=== PATIENT | male | born 1980 | race Caucasian/White ===

== ENCOUNTER 2017-06-09 16:14 | Emergency (ER) | payer OTHER ==
[~2017-06-09] VITALS: Ht 193 cm; Wt 129.3 kg
[2017-06-09 16:14] VITALS: BP 132/69
== END 2017-06-09 16:49 | disposition home or self-care (01) ==
LOC: ER 16:21
DX: S93.691A Other sprain of right foot, initial encounter (principal); F31.9 Bipolar disorder, unspecified; Z88.0 Allergy status to penicillin; W22.03XA Walked into furniture, initial encounter; Y93.89 Activity, other specified; Y92.89 Other specified places as the place of occurrence of the external cause; Y99.8 Other external cause status
CPT/HCPCS: 73630; 99284; A4606; Z7610

== ENCOUNTER 2017-07-24 05:14 | Emergency (ER) | payer OTHER ==
[~2017-07-24] VITALS: Ht 193 cm; Wt 131.1 kg
--- NOTE | 2017-07-24 05:18 | NUR ---
PT AMBULATORY TO ER BED 6. PT BIB SELF C/O RECTAL BLEEDING "ON AND OFF" X 1 MONTH. 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 VSS/RESP EVEN UNLABORED/NAD NOTED/ AFEBRILE/SKIN WARM AND DRY/DENIES N-V-D/AOX4. AWAITING MD OTT.
--- NOTE | 2017-07-24 06:05 | NUR ---
AT BEDSIDE FOR EVAL.
[2017-07-24] MEDS ORDERED: ONDANSETRON HCL/PF 4 MG/2 ML VIAL IVP ONE (06:30)
[2017-07-24] MEDS ORDERED: IV NS 0.9% 1,000 ML BAG IV ONE (06:30)
--- NOTE | 2017-07-24 06:40 | NUR ---
ATTEMPTED IV X 2 WITH NO SUCCESS, PT REFUSED ANY FURTHER ATTEMPTS. MD MADE AWARE, NO NEW ORDERS RECEIVED.
--- NOTE | 2017-07-24 06:51 | NUR ---
LAB AT BEDSIDE TO DRAW.
[2017-07-24 06:59] LABS: BASOPHILS # (AUTO) 0.1 /CMM (0.0-0.2); BASOPHILS % (AUTO) 0.7 % (0.0-2.0); EOSINOPHILS # (AUTO) 0.4 /CMM (0.0-0.7); EOSINOPHILS % (AUTO) 3.2 % (0.0-6.0); HEMATOCRIT 44 % (39-51); HEMOGLOBIN 15.3 g/dL (13.5-17.5); LYMPHOCYTES # (AUTO) 4.5 /CMM (0.8-4.8); LYMPHOCYTES % (AUTO) 35.4 % (20.0-44.0); MEAN CORPUSCULAR HEMOGLOBIN 31 PG (26.0-33.0); MEAN CORPUSCULAR HGB CONC 35 g/dl (31.0-36.0); MEAN CORPUSCULAR VOLUME 90 fL (80-96); MONOCYTES % (AUTO) 8.1 % (2.0-12.0); NEUTROPHILS # (AUTO) 6.7 /CMM (1.8-8.9); NEUTROPHILS % (AUTO) 52.6 % (43.0-81.0); PLATELET COUNT (AUTO) 213 /CMM (150-450); RDW COEFFICIENT OF VARIATION 13.4 (11.5-15.0); RED BLOOD CELL COUNT(AUTO) 4.89 MIL/uL (4.5-6.0); WHITE BLOOD COUNT (AUTO) 12.7 K/uL (4.3-11.0)
[2017-07-24 07:10] LABS: CALCIUM, SERUM 9.1 mg/dL (8.5-10.1); CREATININE 0.9 mg/dL (0.6-1.3); POTASSIUM 4.1 mmol/L (3.5-5.1)
[2017-07-24 07:15] LABS: ALBUMIN 3.7 g/dL (3.4-5.0); BILIRUBIN,DIRECT 0.1 mg/dL (0.0-0.2); BILIRUBIN,TOTAL 0.6 mg/dL (0.2-1.0); TOTAL PROTEIN, SERUM 7.7 g/dL (6.4-8.2)
[2017-07-24 07:20] LABS: INR 0.91 (0.87-1.13)
--- NOTE | 2017-07-24 07:23 | NUR ---
ENDORSED TO [facility] GIFFORD FOR BREANNE.
--- NOTE | 2017-07-24 07:50 | NUR ---
DR FOUNTAIN AT FOR AN UPDATE AND RE-EVAL.
--- NOTE | 2017-07-24 08:09 | NUR ---
Patient discharged to home in stable condition. Written and verbal after care instructions given. Patient verbalizes understanding of instruction.
[2017-07-24 08:10] VITALS: BP 138/92
== END 2017-07-24 08:11 | disposition home or self-care (01) ==
LOC: ER 05:15
DX: K62.5 Hemorrhage of anus and rectum (principal); F31.9 Bipolar disorder, unspecified; Z88.1 Allergy status to other antibiotic agents; Z60.2 Problems related to living alone
CPT/HCPCS: 36415; 80048; 80076; 83690; 85025; 85730; 99284; A4606; J7030; Z7610